=== PATIENT | male | born 1975 | race Caucasian/White ===

== ENCOUNTER 2018-05-07 05:55 | Inpatient (IN) | payer BC ==
[~2018-05-07] VITALS: Ht 182.9 cm; Wt 95.3 kg
--- NOTE | ~2018-05-07 | OP ---
[facility] [address] [place] [address] OPERATIVE REPORT Name: JOCELINE PHILLIPS Room: [address]R.#: [id number] Admission: 05/07/18 Attend Phys: Kailash Jolley MD Discharge: 05/09/18 Date of : 77 Report #: [id number] THIS REPORT FOR: //name// CC: BAMBI Jolley DATE OF SERVICE: 05/08/2018 PREOPERATIVE DIAGNOSIS: Acute cholecystitis. POSTOPERATIVE DIAGNOSIS: Acute cholecystitis. OPERATIVE PROCEDURE DONE: Laparoscopic cholecystectomy. OPERATING SURGEON: Dr. Kailash Jolley. FOREPART REDUCER: Sanjiv, medical student. INDICATIONS FOR THE PROCEDURE: The patient is a 42-year-old male who presented with features of right upper quadrant pain. Clinically, he was noted to have features of acute cholecystitis, which was confirmed on ultrasound. The patient was advised laparoscopic cholecystectomy. DESCRIPTION OF PROCEDURE: After explaining to the patient in detail and informed consent was obtained, the patient was identified in the preoperative holding area, the patient was transferred to the operating room and was placed in supine position. Sequential compressive devices were placed for DVT prophylaxis. Preoperative antibiotics were given. After induction of anesthesia, the abdomen was prepped and draped in a sterile fashion. Through right upper quadrant 1 cm incision and using Optiview technique, the peritoneal cavity was entered and pneumoperitoneum was created. Thereafter, under direct vision, another 5 mm trocar was placed through a supraumbilical incision. Another 5 mm trocar was placed in the epigastrium and one in the right lateral subcostal region. On initial inspection, the gallbladder appeared to be distended and showed features of acute cholecystitis. The gallbladder was decompressed using a laparoscopic needle and approximately about 25 mL of thick bile with sludge was suctioned out. The gallbladder was otherwise packed with stones and there was 1 large stone that was noted. The gallbladder was gently retracted and the peritoneal reflections along the neck of the gallbladder was gently dissected off. Cystic duct was identified and isolated from the surrounding structures. Cystic artery was identified and was isolated from the surrounding structures. Cystic duct was then double clipped proximally and single clip applied distally and was then divided. Cystic artery also was then divided in a similar fashion. The gallbladder was gently dissected off the liver bed. Using hook electrocautery, [place] [address] OPERATIVE REPORT Name: JOCELINE PHILLIPS Room: [address]#: [id number] Admission: 05/07/18 Attend Phys: Kailash Jolley MD Discharge: 05/09/18 Date of : 77 Report #: [id number] Sterile saline irrigation was given. There was some inadvertent spillage of bile during dissection of the gallbladder. The gallbladder was retrieved using an EndoCatch through the lateral most incision. The stone was too large and therefore had to extend the incision to facilitate removal of the stone and again, there was some spillage of bile and gallbladder contents during this part of the retrieval. Once again, after ensuring adequate hemostasis, the abdomen was deflated. The lateral most incision was closed in 2 layers using 0 Vicryl for the fascia. Skin was closed with 4-0 Monocryl. The wound was thoroughly irrigated prior to closure. All of the incisions were closed with 4-0 Monocryl. Dermabond was applied. The patient was stable at the end of the procedure. The patient was awoken up from anesthesia and was transferred to recovery room in stable condition. ESTIMATED BLOOD LOSS: Approximately 25 mL. CONDITION OF THE PATIENT: Stable. FLUIDS GIVEN: Per anesthesia notes. SPECIMEN SENT: Gallbladder. COMPLICATIONS: None. ANESTHESIA: General anesthesia. By: [id number] Yael Jolley MD /yokasta
[2018-05-07 05:59] VITALS: BP 142/83
[2018-05-07 06:39] LABS: URINE BILIRUBIN NEGATIVE (Negative); URINE BLOOD NEGATIVE (Negative); URINE CLARITY CLEAR; URINE COLOR YELLOW; URINE GLUCOSE-RANDOM NEGATIVE (Negative); URINE KETONES NEGATIVE (Negative); URINE LEUKOCYTES-REFLEX NEGATIVE (Negative); URINE NITRITE-REFLEX NEGATIVE (Negative); URINE PROTEIN NEGATIVE (Negative); URINE SPECIFIC GRAVITY >= 1.030 (1.005-1.030); URINE UROBILINOGEN 0.2 E.U./dl (0.2-1.0)
[2018-05-07 06:45] LABS: ABSOLUTE LYMPHOCYTES 1.4 thou/uL (0.8-5.3); ABSOLUTE NEUTROPHILS 8.7 thou/uL (1.6-8.1); BASOPHILS 0.4 %; EOSINOPHILS 0.2 %; HEMATOCRIT 43.7 % (42.0-52.0); HEMOGLOBIN 14.8 gm/dL (14.0-18.0); LYMPHOCYTES 12.9 %; MCH 29.3 pg (26.0-34.0); MCHC 33.9 g/dL (28.0-37.0); MCV 86.3 fL (80.0-100.0); MONOCYTES 9.1 %; MPV 8.5 fl. (7.2-11.1); NUCLEATED RBCS 0 /100WBC; PLATELET COUNT* 208 thou/uL (150-400); POLYS 77.4 %; RBC 5.06 mil/uL (4.50-6.00); RDW-CV 15.3 % (10.5-14.5); WBC 11.2 thou/uL (4.0-11.0)
[2018-05-07 06:53] LABS: ANION GAP 8 mmol/L (7-16); BUN 11 mg/dL (7-18); CALCIUM 9.1 mg/dL (8.5-10.1); CHLORIDE 102 mmol/L (98-107); CO2 28 mmol/L (21-32); CREATININE 1.1 mg/dL (0.6-1.3); GLUCOSE 114 mg/dL (70-99); POTASSIUM 3.5 mmol/L (3.5-5.1); SODIUM 138 mmol/L (136-145)
[2018-05-07 07:00] LABS: ALKALINE PHOSPHATASE 64 U/L (46-116); LIPASE 116 U/L (73-393); SGOT 24 U/L (15-37); SGPT 60 U/L (30-65); TOTAL PROTEIN 7.6 g/dL (6.4-8.2); TROPONIN-I LEVEL <0.06 ng/mL (<0.06)
[2018-05-07 10:03] VITALS: BP 138/96
[2018-05-07 11:30] VITALS: BP 126/63
[2018-05-07 12:03] VITALS: BP 113/73
--- NOTE | 2018-05-07 12:18 | EKG ---
[place] [address] ELECTROCARDIOGRAM REPORT Name: JOCELINE PHILLIPS Room: [address] ADM IN ..#: [id number] Admission: 05/07/18 Attend Phys: Kailash Jolley MD Discharge: Date of : 77 Report #: [id number] THIS REPORT FOR: //name// [facility] ED Test Date: 2018-05-07 Test Time: 06:26:01 Pat Name: JOCELINE JACQUELINE Department: Room: [facility] Gender: Branch Service Leader: Jessica COCHRAN : 1975 Requested By: Marlon Boston Order Number: [id number] MD: Ruiz Vazquez Measurements Intervals [place] Rate: 85 P: NC: QRS: 3 QRSD: 144 T: 31 QT: 324 QTc: 386 Interpretive Statements Atrial fibrillation Nonspecific intraventricular conduction delay No previous ECG available for comparison Electronically Signed On 05-07-2018 12:17:46 HEAVY DUTY CUSTODIAN by Ruiz Vazquez [email or web address] <ELECTRONICALLY SIGNED> By: Ruiz Vazquez MD, [facility] 05/07/18 1217 06 5 Ruiz Vazquez MD, FACC /EPI
[2018-05-07 16:00] VITALS: BP 110/66
[2018-05-08] VITALS: BP 101/57
[2018-05-08 07:55] VITALS: BP 101/62
[2018-05-08 10:30] VITALS: BP 101/62
[2018-05-08] MEDS ORDERED: NORCO 7.5-3251 EACH PO (16:30)
[2018-05-08] MEDS ORDERED: AUGMENTIN 875-1 EACH PO (16:33)
[2018-05-08 17:48] VITALS: BP 95/50
[2018-05-08 19:45] VITALS: BP 98/62
[2018-05-09 00:06] VITALS: BP 95/52
[2018-05-09 04:00] VITALS: BP 117/72
[2018-05-09 07:40] VITALS: BP 113/64
[2018-05-09 09:44] VITALS: BP 113/64
[2018-05-09] MEDS ORDERED: NORCO 5-325 TA1 EACH PO (09:50)
[2018-05-09 10:05] VITALS: BP 113/64
--- NOTE | 2018-05-10 14:08 | PATH ---
[facility] [address] [place] [address] PATHOLOGY RPT PROCEDURE Name: SHER PHILLIPS Room: [address] IN M.R.#: [id number] Admission: 05/07/18 Date of : 77 Discharge: 05/09/18 Report #: [id number] Path Case #: [id number] [facility] Accession Number: [id number] . 01 Material submitted: . GALLBLADDER . 01 Clinical history: . Cholecystitis . 02 Diagnosis: Gallbladder: - Chronic and acute, ulcerative and hemorrhagic cholecystitis with mural fibrosis and cholelithiasis. (TOÑA:pit 05/10/2018) QTP/05/10/2018 . 02 Electronically signed: . Franklin Aly MD, Pathologist NPI- [id number] . 01 Gross description: . Received in formalin labeled "Ball, Sher, gallbladder," is a partially fragmented gallbladder measuring 8.4 x 4.9 x 2.6 cm in aggregate dimensions. The fundus appears from the gallbladder body. The serosal surface is shaggy, disrupted and yellow-borges to dark brown in appearance. The mucosal surface is smooth to shaggy and dark green-brown in appearance, displaying focal dark brown/black discoloration on the possible fundal aspect. The mucosa averages 0.1 cm in thickness, and the gallbladder wall measures up to 0.4 cm in thickness. No polyps or nodules are noted grossly. A granular, dark brown sludge is adherent to the mucosal surface, admixed with yellow-black, multifaceted calculi ranging from 0.1 to 3.1 cm in maximum dimension. Process Safety Manager sections of the infundibulum, body and possible fundus are submitted in cassette A1, to include the mucosal surface discoloration. (DAC; 05/09/2018) XDC/XDC . 02 Pathologist provided ICD-10: K80.12 . 02 CPT . 896745 Specimen Comment: A courtesy copy of this report has been sent to Specimen Comment: [phone], . Specimen Comment: Report sent to / DR GARIBAY Performed at: 01 [place] [address] PATHOLOGY RPT PROCEDURE Name: SHER PHILLIPS Room: [address] IN M..#: [id number] Admission: 05/07/18 Date of : 77 Discharge: 05/09/18 Report #: [id number] Path Case #: [id number] [address] [facility] [address], [place] [id number] MD Robin Dave MD Phone: [phone] Performed at: 02 [facility] [address], [place], [place] [id number] MD Franklin Aly MD Phone: [phone]
== END 2018-05-09 10:04 | disposition home or self-care (01) | DRG 419 ==
LOC: M.ERS 05:55 → M.TBA-ER 10:20 → M.3W 10:20
PROVIDERS: Emergency Medicine Emergency Medical Services; ADMIT Surgery
PROC: 0FT44ZZ Resection of Gallbladder, Percutaneous Endoscopic Approach (ICD-10-PCS; principal; 2018-05-08)
DX: K80.00 Calculus of gallbladder with acute cholecystitis without obstruction (principal); Z90.49 Acquired absence of other specified parts of digestive tract